=== PATIENT | male | born 1970 | race Caucasian/White ===

== ENCOUNTER 2017-06-10 11:07 | Emergency (ER) | payer OTHER ==
[~2017-06-10] VITALS: Ht 190.5 cm; Wt 85.0 kg
[~2017-06-10 11:07] MED LIST: LISI-363 PO; VENTAER INH
[2017-06-10 11:09] VITALS: BP 160/105; PULSE 79; RESP 14; TEMP 98.5; O2SAT 98
[2017-06-10] MEDS ORDERED: KETOROLAC TROMETHAMINE 60 MG/2 ML (IM) VIAL IM ONE (12:00)
[2017-06-10] MEDS ORDERED: ORPHENADRINE INJ 60 MG/2 ML AMP IM ONE (12:00)
--- NOTE | 2017-06-10 12:01 | PD ---
HPI Chief Complaint: Back/ Neck Pain or Injury Time Seen by Provider: 11:53 Travel History International Travel<30 days: No Contact w/Intl Traveler<30days: No Traveled to known affect area: No History of Present Illness HPI 47-year-old male with history of sciatica presents to emergency depart for evaluation of exacerbation of sciatica on the right side radiating into his buttock and thigh. Patient states this began last evening after a drywall of the ceiling fell landing on his back. He denies any saddle paresthesia, loss of bowel or bladder, lower extremity weakness. States that his symptoms are consistent with previous sciatica exacerbations. Pain is moderate, intermittently sharp. He has no other symptoms reported this time. [facility] Past Medical History Asthma: Yes Cancer: No Cardiovascular Problems: No Diabetes: No Endocrine: No Genitourinary: No Hepatitis: No Hiatal Hernia: No Hypertension: Yes Immune Disorder: No Musculoskeletal: Yes (LUMBAR CHRONIC SCIATA) Neurologic: No Psychiatric: No Reproductive: No Respiratory: Yes (ENVIRONMENTAL ALLERGIES,RESP.FAILURE DUE TO CAT ALLERGIES.ON RESP.X 1 WEEK) Thyroid Disease: No Past Surgical History Body Medical Devices: NONE Joint Replacement: No Social History Alcohol Use: No Tobacco Use: No Substance Use: No Allergies-Medications (Allergen,Severity, Reaction): Coded Allergies: No Known Allergies (Unverified , 03/07/16) Reported Meds & Prescriptions Reported Meds & Active Scripts Active Robaxin (Methocarbamol) 500 Mg Tab 500 Mg PO QID PRN Ibuprofen 600 Mg Tab 600 Mg PO Q8HR PRN Reported Lisinopril 20 mg (Lisinopril) 20 Mg Tab 1 Tab PO DAILY Ventolin Hfa (Albuterol Sulfate) 18 Gm Aero 2 Puff INH ONCE * SHAKE WELL BEFORE USE * Review of Systems Except as stated in HPI: all other systems reviewed are Neg Physical Exam Narrative GENERAL: Well-nourished, well-developed male patient, ambulatory with a nonantalgic gait, no acute distress SKIN: Focused skin assessment warm/dry. HEAD: Normocephalic. EYES: No scleral icterus. No injection or drainage. NECK: Supple, trachea midline. No JVD or lymphadenopathy. CARDIOVASCULAR: Regular rate and rhythm without murmurs, gallops, or rubs. RESPIRATORY: Breath sounds equal bilaterally. No accessory muscle use. GASTROINTESTINAL: Abdomen soft, non-tender, nondistended. MUSCULOSKELETAL: No cyanosis, or edema. No spinal tenderness. Tenderness elicited palpation of the right sacroiliac joint. Positive straight leg right lower extremity. Distal pulses are palpable. Cap refill within normal limits. BACK: without obvious deformity. No CVA tenderness. Data Data Last Documented VS Vital Signs Date Time Temp Pulse Resp B/P (MAP) Pulse Ox O2 Delivery O2 Flow Rate FiO2 06/10/17 12:26 06/10/17 11:09 98.5 79 14 98 Orders Orders Ketorolac Inj (Toradol Inj) (06/10/17 12:00) Orphenadrine Inj (Norflex Inj) (06/10/17 12:00) Ed Discharge Order (06/10/17 12:21) [facility] Medical Decision Making Medical Screen Exam Complete: Yes Emergency Medical Condition: Yes Medical Record Reviewed: Yes Differential Diagnosis Low back strain versus discogenic pain versus radiculopathy Narrative Course 47 year male presents to emergency department for evaluation of low back pain. Patient appears without distress. No focal deficits or weakness. Patient's symptoms are consistent with sciatica exacerbation. He'll be treated for this. He is counseled on care and agrees to return immediately with any acute worsening of symptoms. Diagnosis Primary Impression: Acute back pain with sciatica Qualified Codes: M54.41 - Lumbago with sciatica, right side Referrals: Primary Care Physician Patient Instructions: Acute Low Back Pain (ED), General Instructions Additional Instructions: Ice and/or warm moist heat may help to alleviate symptoms Follow-up with your primary care provider Avoid activity that exacerbates pain Return immediately to the emergency department with any acute worsening Med/Other Pt SpecificInfo: Prescription(s) given Scripts Methocarbamol (Robaxin) 500 Mg Tab 500 MG PO QID Y for MUSCLE SPASM, #20 TAB 0 Refills Prov: Rosa Maria Ramírez 06/10/17 Ibuprofen (Ibuprofen) 600 Mg Tab 600 MG PO Q8HR Y for PAIN, #30 TAB 0 Refills Prov: Rosa Maria Ramírez 06/10/17 Disposition: 01 DISCHARGE HOME Condition: Stable Rosa Maria Ramírez Jun 10, 2017 12:01
[2017-06-10] MEDS ORDERED: IBUP-232 PO (12:21)
[2017-06-10] MEDS ORDERED: ROBA500T PO (12:21)
== END 2017-06-10 12:27 | disposition home or self-care (01) ==
LOC: NEPK 11:07
DX: M54.41 Lumbago with sciatica, right side (principal); J45.909 Unspecified asthma, uncomplicated; I10 Essential (primary) hypertension
CPT/HCPCS: 96372; 99284; J1885; J2360